=== PATIENT | male | born 1965 | race Caucasian/White ===

== ENCOUNTER → 2019-04-11 | Emergency (ER) | payer BC ==
[~2019-04-11] MED LIST: ASPIRIN 81 MG TAB.CHEW ONE; CLOPIDOGREL BISULFATE 75 MG TABLET ONE; METOPROLOL TARTRATE 25 MG TABLET ONE; NITROGLYCERIN LINGUAL 400 mCg/SPRAY ONE
== END | disposition still patient (30) ==
LOC: SED 08:10
DX: I21.3 ST elevation (STEMI) myocardial infarction of unspecified site (principal); I10 Essential (primary) hypertension; F17.200 Nicotine dependence, unspecified, uncomplicated
CPT/HCPCS: 93005; 99281; 99283